=== PATIENT | male | born 2000 | race Caucasian/White ===

== ENCOUNTER 2021-05-01 01:18 | Emergency (ER) | payer BC, SELFPAY ==
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
[2021-05-01 01:22] VITALS: BP 138/88; PULSE 104; RESP 18; TEMP 36.4; O2SAT 99
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
[2021-05-01] MEDS: ONDANSETRON INJ 4 MG/2 ML VIAL IV PUSH (01:33)
[2021-05-01] MEDS: HYDROmorphone HCL INJ (*CRX) 1 MG/ML SYR IV PUSH ×2 (01:33→02:32)
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
--- NOTE | 2021-05-01 03:05 | PC.NURSE ---
called [facility] to request transport. ETA [address], [facility] and [facility] not available for transport tonight.
[2021-05-01 04:24] VITALS: BP 131/87; PULSE 101; RESP 20; TEMP 36.7; O2SAT 99
--- NOTE | 2021-05-13 19:19 | PC.NURSE ---
Late entry VORB per , place sugar tong splint to left arm.
== END 2021-05-01 04:15 | disposition short-term general hospital (02) ==
PROVIDERS: Emergency Provider Emergency Medicine
DX: S52.302A Unspecified fracture of shaft of left radius, initial encounter for closed fracture (principal); S52.202A Unspecified fracture of shaft of left ulna, initial encounter for closed fracture; V86.59XA Driver of other special all-terrain or other off-road motor vehicle injured in nontraffic accident, initial encounter; Y92.410 Unspecified street and highway as the place of occurrence of the external cause
CPT/HCPCS: 29125; 70450; 72125; 73090; 96374; 96375; 96376; 99285; A4565; J1170; J2405

== ENCOUNTER 2022-11-06 18:21 | Emergency (ER) | payer BC, SELFPAY ==
[2022-11-06 19:39] VITALS: BP 130/89; PULSE 101; RESP 18; TEMP 36.7; O2SAT 99
--- NOTE | 2022-11-06 20:23 | ED.URI ---
HPI - URI/Sore Throat General Chief Complaint: Upper Respiratory Infection Stated Complaint: Sore Throat,Congestion,Fatigue Time Seen by Provider: 11/06/22 20:23 Source: patient Mode of arrival: ambulatory Limitations: no limitations History of Present Illness HPI Narrative: 22-year-old male presents with complaint of cough, chest congestion for 4 days. Return hot and cold chills but no fever. States that he became winded at work today. Is having some shortness of breath with exertion and chest tightness. Denies history of asthma. Does not smoke. Did not do home COVID test. All systems reviewed and negative except as noted above. Related Data Allergies Allergy/AdvReac Type Severity Reaction Status Date / Time No Known Allergies Allergy Unknown Unverified 11/06/22 19:37 Review of Systems Review of Systems: CONSTITUTIONAL: Denies fever. Reports chills, or sweats. EYES: Denies visual changes, redness, or discharge. ENT: Reports rhinorrhea, congestion, sore throat. Denies otalgia. CARDIOVASCULAR: Denies chest pain, palpitations, or edema. RESPIRATORY: reports cough and dyspnea with exertion. GASTROINTESTINAL: Denies abdominal pain, nausea, vomiting, or diarrhea. GENITOURINARY: Denies dysuria or hematuria. SKIN: Denies rash or itching. MUSCULOSKELETAL: Denies back pain, joint pain, or myalgia. NEUROLOGIC: Denies headache, numbness, or weakness. PSYCHIATRIC: Denies anxiety or depression. All other systems reviewed are negative, except as documented in HPI. PMFSH Social History Social History Alcohol intake: never Comments At time of signature, agree with nursing past medical, surgical, social and family history. There is no relevant family history pertinent to the presenting complaint. Exam Narrative: GENERAL: This is a well-nourished, well-developed patient, in no apparent distress. HEAD: normocephalic, atraumatic. EYES: PERRL. Sclera clear/white. Vision is grossly intact. EARS: External ears normal, auditory canals clear and without drainage, TMs normal without perforation. Hearing grossly intact. NOSE: External nose normal with clear nasal drainage, erythema to both nares. THROAT: Mucous membranes moist, posterior pharynx clear. NECK: Neck supple, non-tender without lymphadenopathy, masses or thyromegaly. CARDIOVASCULAR: Regular rate and rhythm without murmurs, gallops, or rubs. RESPIRATORY: Expiratory wheezing throughout all lung coto. SKIN: warm, Dry, intact with no suspicious lesions or rash, good texture and turgor. NEURO: awake, alert, and oriented to person, place and time. There were no obvious focal neurologic abnormalities. EXTREMITIES: No joint tenderness, effusion, or edema noted. Course Course Level of Care: [facility] Visit Vital Signs Vital signs: Vital Signs Temperature 36.7 C 11/06/22 19:39 Pulse Rate 101 H 11/06/22 19:39 Respiratory Rate 18 11/06/22 19:39 Blood Pressure 130/89 11/06/22 19:39 Pulse Oximetry 99 11/06/22 19:39 Oxygen Delivery Room Air 11/06/22 19:39 Temperature 36.7 C 11/06/22 19:39 Pulse Rate 101 H 11/06/22 19:39 Respiratory Rate 18 11/06/22 19:39 Blood Pressure 130/89 11/06/22 19:39 Pulse Oximetry 99 11/06/22 19:39 Oxygen Delivery Room Air 11/06/22 19:39 Reviewed MDM - URI/Sore Throat MDM Narrative Medical decision making narrative: negative influenza and strep test. Patient offered COVID testing, chest x-ray and neb treatment at [facility]. He refused. States that he has been waiting two hours and just wants medications and wants to leave. He is in no respiratory distress. His oxygen saturation is 99% room air. Prescribed prednisone and albuterol inhaler. Patient [place] as precaution due to refusing chest x-ray. Patient is aware of diagnosis, understands and agrees to treatment plan. Anticipatory guidance given. Patient agrees to follow-
== END 2022-11-06 20:44 | disposition home or self-care (01) ==
PROVIDERS: Emergency Provider Nurse Practitioner Family
DX: J06.9 Acute upper respiratory infection, unspecified (principal)
CPT/HCPCS: 87081; 87804; 87880; 99213; G0463